=== PATIENT | female | born 1995 | race Caucasian/White ===

== ENCOUNTER 2017-02-10 14:57 | Emergency (ER) | payer BC ==
[~2017-02-10] VITALS: Ht 162.6 cm; Wt 52.0 kg
[2017-02-10 15:07] VITALS: BP 142/82; PULSE 104; RESP 20; TEMP 98; O2SAT 100
[2017-02-10] MEDS ORDERED: SODIUM CHLOR 0.9% 1000 ML INJ 1,000 ML IV ONE (15:30)
--- NOTE | 2017-02-10 15:32 | PD ---
HPI Chief Complaint: Cardiac Complaint Time Seen by Provider: 15:14 Travel History International Travel<30 days: No Contact w/Intl Traveler<30days: No Traveled to known affect area: No History of Present Illness HPI This is a 21-year-old female who presents to the emergency department having been in [place] when she all of a sudden felt dizzy, lightheaded, palpitations, anxiety and felt like she was blacking out. The symptoms lasted for several minutes and then subsided. She did not lose consciousness. She's been sick for 2 months intermittently with nasal congestion and a chronic cough. She is currently on amoxicillin. She denies any chest pain. She is on control pills. Currently she feels back to normal. This is never happened to her before. [facility] Past Medical History Medical History: Denies Significant Hx Diminished Hearing: No Influenza Vaccination: No ?: Not LMP: 01/2017 Past Surgical History Surgical History: No Previous Surgery Social History Alcohol Use: No Tobacco Use: No Allergies-Medications (Allergen,Severity, Reaction): Coded Allergies: Food Additives (Verified Allergy, Severe, 02/10/17) [facility] Reported Meds & Prescriptions Reported Meds & Active Scripts Active Reported [Bcp] 1 Tab PO DAILY Augmentin (Amoxicillin-Clavulanate) 875-125 mg Tab 875 Mg PO BID not for use in CrCl <30 ml/min. Review of Systems Except as stated in HPI: all other systems reviewed are Neg Physical Exam Narrative GENERAL:Well appearing, no acute distress SKIN: Warm and dry. HEAD: Atraumatic. Normocephalic. EYES: Pupils equal and round. No injection or drainage. ENT: Moist mucous membranes NECK: Trachea midline. CARDIOVASCULAR: Regular rate and rhythm. No murmur appreciated. RESPIRATORY: Clear to auscultation. Breath sounds equal bilaterally. GASTROINTESTINAL: Abdomen soft, non-tender, nondistended. MUSCULOSKELETAL: No obvious deformities. NEUROLOGICAL: Awake and alert. No obvious cranial nerve deficits. Moving all extremities. PSYCHIATRIC: Appropriate mood and affect; insight and judgment normal. Data Data Last Documented VS Vital Signs Date Time Temp Pulse Resp B/P Pulse Ox O2 Delivery O2 Flow Rate FiO2 02/10/17 16:48 85 18 124/61 99 Room Air 02/10/17 15:07 98.0 Orders Complete Blood Count With Diff (3/16/17 15:20) Comprehensive Metabolic Panel (02/10/17 15:20) Electrocardiogram (02/10/17 ) Ed Urine Pregnancytest Poc (02/10/17 15:20) Sodium Chlor 0.9% 1000 Ml Inj (Ns 1000 M (02/10/17 15:30) Chest, Single Ap (02/10/17 ) Labs Laboratory Tests Test 02/10/17 16:20 White Blood Count 9.3 TH/MM3 Red Blood Count 4.07 MIL/MM3 Hemoglobin 11.5 GM/DL Hematocrit 35.0 % Mean Corpuscular Volume 86.0 FL Mean Corpuscular Hemoglobin 28.4 PG Mean Corpuscular Hemoglobin 33.0 % Concent Red Cell Distribution Width 11.9 % Platelet Count 264 TH/MM3 Mean Platelet Volume 7.7 FL Neutrophils (%) (Auto) 73.7 % Lymphocytes (%) (Auto) 17.2 % Monocytes (%) (Auto) 7.8 % Eosinophils (%) (Auto) 0.7 % Basophils (%) (Auto) 0.6 % Neutrophils # (Auto) 6.8 TH/MM3 Lymphocytes # (Auto) 1.6 TH/MM3 Monocytes # (Auto) 0.7 TH/MM3 Eosinophils # (Auto) 0.1 TH/MM3 Basophils # (Auto) 0.1 TH/MM3 CBC Comment DIFF FINAL Differential Comment Sodium Level 145 MEQ/L Potassium Level 3.6 MEQ/L Chloride Level 112 MEQ/L Carbon Dioxide Level 24.1 MEQ/L Anion Gap 9 MEQ/L Blood Urea Nitrogen 10 MG/DL Creatinine 0.62 MG/DL Estimat Glomerular Filtration 124 ML/MIN Rate Random Glucose 78 MG/DL Calcium Level 7.6 MG/DL Total Bilirubin 0.1 MG/DL Aspartate Amino Transf 14 U/L (AST/SGOT) Alanine Aminotransferase 19 U/L (ALT/SGPT) Alkaline Phosphatase 32 U/L Total Protein 5.9 GM/DL Albumin 2.8 GM/DL [facility] Medical Decision Making Medical Screen Exam Complete: Yes Emergency Medical Condition: Yes Interpretation(s) EKG: Normal sinus rhythm with no ST changes No leukocytosis Electrolytes are reassuring test is negative Differential Diagnosis Panic attack, vasovagal syncope, arrhythmia, electrolyte abnormality, pneumonia Narrative Course This is a 21-year-old female who presents to the emergency department with lightheadedness and dizziness that started while she was shopping and associated with some palpitations. My impression is that she likely had a panic attack. She did not pass out. She was placed on a monitor and an IV was established. Labs are obtained which were all reassuring. EKG was reassuring with no preexcitation or arrhythmia. Chest x-ray was obtained given the patient 's recent history of chronic cough which was reassuring. test was negative. I think the patient is safe for follow-up with her outpatient primary care physician. Diagnosis Primary Impression: Panic attack Patient Instructions: General Instructions Additional Instructions: If you develop severe chest pain, shortness of breath, sweating, lightheadedness , dizziness or difficulty breathing return to the emergency department immediately. Followup with your primary care physician in 2-3 days if your symptoms are not resolved. Med/Other Pt SpecificInfo: No Change to Meds Disposition: 01 DISCHARGE HOME Condition: Stable Divine Proctor MD Feb 10, 2017 15:32
--- NOTE | 2017-02-10 15:41 | RADHPO ---
EXAM DATE/TIME: 02/10/2017 15:28 [place] COMPARISON: No previous studies available for comparison. INDICATIONS : Cough. MEDICAL HISTORY : None. SURGICAL HISTORY : None. ENCOUNTER: Initial ACUITY: 1 day PAIN SCORE: 0/10 LOCATION: Bilateral chest FINDINGS: A single view of the chest demonstrates the lungs to be symmetrically aerated without evidence of mas s, infiltrate or effusion. The cardiomediastinal contours are unremarkable. Osseous structures are intact. CONCLUSION: No acute disease. Eyal Mcgill MD on February 10, 2017 at 15:37 Board Certified Radiologist. This report was verified electronically.
[2017-02-10] MEDS ORDERED: BCP PO (16:13)
[2017-02-10] MEDS ORDERED: AUGM875T PO (16:13)
[2017-02-10 16:30] LABS: AUTOMATED NEUTROPHIL # 6.8 TH/MM3 (1.8-7.7); BASOPHIL # 0.1 TH/MM3 (0-0.2); BASOPHIL % 0.6 % (0.0-2.0); EOSINOPHIL # 0.1 TH/MM3 (0-0.4); EOSINOPHIL % 0.7 % (0.0-4.0); HEMO FLAGS DIFF FINAL; LYMPH % 17.2 % (9.0-44.0); LYMPHOCYTE # 1.6 TH/MM3 (1.0-4.8); MEAN CORPUSCULAR HEMOGLOBIN 28.4 PG (27.0-34.0); MONO % 7.8 % (0.0-8.0); NEUT % 73.7 % (16.0-70.0); PLATELET COUNT 264 TH/MM3 (150-450); RED BLOOD COUNT 4.07 MIL/MM3 (4.00-5.30); RED CELL DISTRIBUTION WIDTH 11.9 % (11.6-17.2); WHITE BLOOD COUNT 9.3 TH/MM3 (4.0-11.0)
[2017-02-10 16:40] LABS: CHLORIDE 112 MEQ/L (98-107); POTASSIUM 3.6 MEQ/L (3.5-5.1); SODIUM (NA) 145 MEQ/L (136-145)
[2017-02-10 16:43] LABS: ANION GAP 9 MEQ/L (5-15); BICARBONATE 24.1 MEQ/L (21.0-32.0)
[2017-02-10 16:44] LABS: BLOOD UREA NITROGEN 10 MG/DL (7-18)
[2017-02-10 16:46] LABS: ALT (GPT) 19 U/L (9-42)
[2017-02-10 16:47] LABS: AST (GOT) 14 U/L (16-38); GLOMERULAR FILTRATION RATE 124 ML/MIN (>89)
[2017-02-10 16:48] VITALS: BP 124/61; PULSE 85; RESP 18; O2SAT 99
[2017-02-10 16:48] LABS: TOTAL BILIRUBIN ADULT 0.1 MG/DL (0.2-1.0)
[2017-02-10 16:49] LABS: ALKALINE PHOSPHATASE 32 U/L (45-117)
--- NOTE | 2017-02-11 14:53 | EKG ---
Date Performed: 02/10/2017 Time Performed: 15:39:52 PTAGE: 21 years EKG: Sinus arrhythmia Normal ECG NO PREVIOUS TRACING DOCTOR: Naty Campbell Interpretating Date/Time 02/11/2017 14:51:51
== END 2017-02-10 17:16 | disposition home or self-care (01) ==
LOC: PHED 14:57
DX: F41.0 Panic disorder [episodic paroxysmal anxiety] (principal)
CPT/HCPCS: 71010; 80053; 84703; 85025; 93005; 96360; 99285; J7030